=== PATIENT | male | born 1960 | race Caucasian/White ===

== ENCOUNTER 2017-12-15 15:48 | Emergency (ER) | payer OTHER ==
[~2017-12-15] VITALS: Ht 182.8 cm; Wt 77.1 kg
[~2017-12-15 15:48] MED LIST changes: -CYCLOBENZAPRINE10 MG PO; -DEPAKOTE500 MG PO; -EC NAPROSYN500 MG PO; -MEDROL DOSEPAK4 MG PO
[2017-12-15] MEDS ORDERED: DEPAKOTE500 MG PO (15:56)
[2017-12-15] MEDS ORDERED: EC NAPROSYN500 MG PO (17:10)
[2017-12-15] MEDS ORDERED: MEDROL DOSEPAK4 MG PO (17:10)
[2017-12-15] MEDS ORDERED: CYCLOBENZAPRINE10 MG PO (17:10)
== END 2017-12-15 17:08 | disposition home or self-care (01) ==
LOC: ED 15:48
DX: M25.552 Pain in left hip (principal); Z98.890 Other specified postprocedural states; Z79.899 Other long term (current) drug therapy

== ENCOUNTER → 2017-12-15 | Outpatient (CLI) | payer OTHER ==
[~2017-12-15] MED LIST: CYCLOBENZAPRINE10 MG PO; DEPAKOTE500 MG PO; EC NAPROSYN500 MG PO; MEDROL DOSEPAK4 MG PO; ZOFRAN ODT4 MG SL
== END | disposition home or self-care (01) ==
LOC: RAD 15:18
DX: M47.892 Other spondylosis, cervical region (principal)

== ENCOUNTER 2020-05-12 12:33 | Emergency (ER) | payer OTHER ==
[~2020-05-12] VITALS: Wt 82.6 kg
[~2020-05-12 12:33] MED LIST changes: +CYCLOBENZAPRINE10 MG PO; +DEPAKOTE500 MG PO; +EC NAPROSYN500 MG PO; +MEDROL DOSEPAK4 MG PO
== END 2020-05-12 16:25 | disposition home or self-care (01) ==
LOC: ED 12:33
DX: K59.00 Constipation, unspecified (principal); R56.9 Unspecified convulsions; Z79.899 Other long term (current) drug therapy

== ENCOUNTER 2020-06-28 12:56 | Emergency (ER) | payer OTHER ==
[~2020-06-28] VITALS: Ht 182.8 cm; Wt 82.6 kg
[2020-06-28 13:56] LABS: BASO % 0.7 % (0.0-1.0); EOS # 0.3 10*3/uL (0.0-0.4); HEMATOCRIT 44.3 % (42.0-52.0); LYMPH # 1.1 10*3/uL (1.3-4.4); MEAN CELL VOLUME 91.2 fl (80.0-94.0); MEAN CORPUSCULAR HGB 29.8 pg (27.0-31.0); MEAN CORPUSCULAR HGB CONC 32.7 g/dl (33.0-37.0); MEAN PLATELET VOLUME 9.3 fl (9.6-12.3); MONO # 0.4 10*3/uL (0.1-1.0); MONO % 7.3 % (3.0-9.0); NEUT # 3.6 10*3/uL (2.3-7.9); NEUT % 66.8 % (47.0-73.0); PLATELET COUNT AUTOMATED 277 10*3/uL (130-400); RED BLOOD COUNT 4.86 10*6/uL (4.50-5.90); RED CELL DISTRI WIDTH 12.7 % (0-14.5); WHITE BLOOD COUNT 5.5 10*3/uL (4.8-10.8)
[2020-06-28 14:19] LABS: ALKALINE PHOSPHATASE 92 U/L (45-117); BUN 14 mg/dl (7-24); CHLORIDE 107 mmol/L (98-107); CREATININE 1.07 mg/dL (0.70-1.30); LIPASE 70 U/L (73-393); SGOT/AST 17 IU/L (3-35); SGPT/ALT 27 U/L (12-78); SODIUM 140 mmol/L (136-145); TOTAL PROTEIN 7.8 gm/dL (6.4-8.2)
== END 2020-06-28 16:33 | disposition home or self-care (01) ==
LOC: ED 12:56
PROVIDERS: Physician Assistant
DX: K59.00 Constipation, unspecified (principal); F17.200 Nicotine dependence, unspecified, uncomplicated; Z79.899 Other long term (current) drug therapy